=== PATIENT | male | born 1990 ===

== ENCOUNTER 2017-09-03 09:46 | Observation (INO) | payer OTHER ==
[2017-09-03 09:54] VITALS: BMI 35.4
[2017-09-03] MEDS ORDERED: Sodium Chloride 0.9% 1,000 ML IV STA (10:28)
--- NOTE | 2017-09-03 10:29 | ED PDOC ---
HPI: CCC, URI, Sore Throat Time Seen by Provider: 09/03/17 10:02 Chief Complaint (Nursing): ENT Problem Chief Complaint (Provider): Sore throat History Per: Patient History/Exam Limitations: no limitations Have you had recent travel within the past 21 days to any of the following countries: [place], [place], [place] or [place]?: No Onset/Duration Of Symptoms: Days (6) Current Symptoms Are (Timing): Still Present Location Of Pain: Throat Sick Contacts (Context): None Associated Symptoms: Fever (at night), Sore Throat. denies: Nausea, Vomiting Additional History Per: Patient Additional Complaint(s): 27yo male, no past medical history, presents to ED with complaints of a sore throat present for the past 6 days. Patient states he was seen at [facility] when his symptoms first started and was diagnosed with a strep throat and placed on a 10 day regimen of penicillin. Patient has been taking his antibiotics as prescribed as well as Motrin for pain with no relief of symptoms. He denies any fever, chills, vomiting or diarrhea. Patient states he has not been able to tolerate PO intake due to pain while swallowing. He has no other medical complaints. PMD: None provided Past Medical History Reviewed: Historical Data, Nursing Documentation, Vital Signs Vital Signs: Last Vital Signs Temp 97.7 F 09/03/17 09:52 Pulse 98 H 09/03/17 09:52 Resp 16 09/03/17 09:52 BP 119/78 09/03/17 09:52 Pulse Ox 98 09/03/17 14:32 - Medical History PMH: No Chronic Diseases - Surgical History Surgical History: No Surg Hx - Family History Family History: States: No Known Family Hx - Allergies Allergies/Adverse Reactions: Allergies Allergy/AdvReac Type Severity Reaction Status Date / Time No Known Allergies Allergy Verified 09/03/17 10:05 Review of Systems ROS Statement: Except As Marked, All Systems Reviewed And Found Negative Constitutional: Negative for: Fever, Chills ENT: Positive for: Throat Pain Gastrointestinal: Negative for: Nausea, Vomiting Physical Exam - Reviewed Nursing Documentation Reviewed: Yes Vital Signs Reviewed: Yes - Physical Exam Appears: Positive for: Non-toxic Head Exam: Positive for: ATRAUMATIC, NORMAL INSPECTION, NORMOCEPHALIC Skin: Positive for: Normal Color Eye Exam: Positive for: Normal appearance ENT: Positive for: Pharyngeal Erythema, Tonsillar Exudate, Tonsillar Swelling ( right > left) Neck: Positive for: Supple Cardiovascular/Chest: Positive for: Regular Rate, Rhythm Respiratory: Positive for: Normal Breath Sounds Gastrointestinal/Abdominal: Positive for: Normal Exam, Soft. Negative for: Tenderness Neurologic/Psych: Positive for: Alert, Oriented. Negative for: Motor/Sensory Deficits - Laboratory Results Result Diagrams: 09/03/17 11:05 09/03/17 11:05 - ECG O2 Sat by Pulse Oximetry: 98 (RA) Pulse Ox Interpretation: Normal Medical Decision Making Medical Decision Making: Impression: Tonsillitis Differential: Peritonsilar or tonsilar abscess Plan: -- Labs -- Rapid Strep -- [place] -- Clindaymcin 600mg in 50 ml IVPB -- Decadron 10 mg IV -- IV Fluids -- CT Neck soft tissue Time: 1344 CT Neck FINDINGS: NASOPHARYNX: Unremarkable. SUPRAHYOID NECK: Dental artifact limits evaluation. There appears to be moderately prominent lingual tonsillar hypertrophy and soft tissue bilaterally. There is a small amount of hypodensity seen in the right peritonsillar region. Small developing phlegmon or early abscess is not excluded. No appreciable focal low density is seen in the left peritonsillar region. Tongue base region shows no evidence of fluid collection. There is some additional inflammatory change extending into the inferior oral pharynx bilaterally. A portion may also extend into the aryepiglottic regions. INFRAHYOID NECK: No collections or masses are seen in the infrahyoid region. Visualized focal cords are unremarkable, although there does appear to be a small amount of soft tissue thickening in the right side of the glottis without focal low density to suggest abscess. Epiglottis is otherwise unremarkable without significant thickening. MASS: None. GLANDS: Parotid and submandibular glands unremarkable. Normal size thyroid gland, without nodule. LYMPH NODES: Multiple enlarged lymph nodes are identified bilaterally, greatest in the jugular -digastric region and level 2 region. These appear to be more than likely reactive in a patient of this age but will require further clinical follow-up. Smaller submental and submandibular lymph nodes are appreciated. No supraclavicular adenopathy is noted. CERVICAL SPINE: No fracture or focal lesion. VASCULAR STRUCTURES: Unremarkable. OTHER FINDINGS: Visualized brain is within normal limits without abnormal enhancement or appreciable epidural or subdural collection. Retro-orbital regions are unremarkable. Bony structures are intact. Visualized sinuses and mastoid air cells are clear. Lung apices show no evidence of infiltrate. Mediastinum is within normal limits without collection. IMPRESSION: Bilateral moderate tonsillar hypertrophy and soft tissue consistent with pharyngitis. There is a small area of hypodensity seen in the right peritonsillar region. This would appear to represent developing phlegmon and/ or early abscess. No appreciable drainable collections clearly identified although further clinical follow-up is suggested. In addition there are multiple bilateral enlarged neck lymph nodes. [place]: [address] Luevano who is agreeable with plan for decadron and clindamycin. He will come and evaluate patient in ED for examination and final disposition. Scribe Attestation: Documented by Bailey Mclain acting as a scribe for Jacinda Caro MD. Provider Attestation: All medical record entries made by the Scribe were at my direction and personally dictated by me. I have reviewed the chart and agree that the record accurately reflects my personal performance of the history, physical exam, medical decision making, and the department course for this patient. I have also personally directed, reviewed, and agree with the discharge instructions and disposition. Disposition - Patient ED Disposition Is Patient to be Admitted: Transfer of Care - Disposition Disposition Time: 15:00 Condition: STABLE Forms: [employer] (Arabic) Patient Signed Over To: Margret Rodriguez Handoff Comments: Pending exam from Dr. Luevano and final disposition.
[2017-09-03] MEDS ORDERED: Clindamycin 600mg/50ml NS 600 MG/50 ML BAG IVPB STA (10:31)
[2017-09-03] MEDS ORDERED: Dexamethasone 4 mg/1 ml ONE (10:41)
[2017-09-03] MEDS ORDERED: Clindamycin 600mg/50ml NS 600 MG/50 ML BAG IVPB ONE (11:11)
[2017-09-03 11:23] LABS: BASO % 0.4 % (0.0-2.0); EOS % 0.5 % (0.0-4.0); HEMOGLOBIN 16.1 g/dL (12.0-18.0); LYMPH # 0.9 K/uL (1.0-4.3); LYMPH % 29.6 % (20.0-40.0); MEAN CELL VOLUME 87.9 fl (80.0-94.0); MEAN CORPUSCULAR HEMOGLOBIN 29.7 pg (27.0-31.0); MEAN CORPUSCULAR HGB CONC 33.8 g/dL (33.0-37.0); MONO # 0.3 K/uL (0.0-0.8); MONO % 10.6 % (0.0-10.0); NEUT # 1.8 K/uL (1.8-7.0); NEUT % 58.9 % (50.0-75.0); NRBC % 0.3 % (0.0-0.0); RBC 5.43 Mil/uL (4.40-5.90)
[2017-09-03 12:02] LABS: BLOOD UREA NITROGEN 11 mg/dl (9-20); GFR AFRICAN-AMERICAN > 60; GFR NON-AFRICAN AMERICAN > 60
[2017-09-03] MEDS ORDERED: Iohexol 300 100 ML IJ ONE (12:25)
--- NOTE | 2017-09-03 13:33 | CT ---
PROCEDURE: CT NECK WITH CONTRAST HISTORY: Tonsillar abscess right COMPARISON: None TECHNIQUE: CT of the neck with intravenous contrast. Coronal and sagittal reformats generated. Intravenous contrast dose: Omnipaque Radiation dose: DLP 834 mGy-cm This CT exam was performed using one or more of the following dose reduction techniques: Automated exposure control, adjustment of the mA and/or kV according to patient size, and/or use of iterative reconstruction technique. FINDINGS: NASOPHARYNX: Unremarkable. SUPRAHYOID NECK: Dental artifact limits evaluation. There appears to be moderately prominent lingual tonsillar hypertrophy and soft tissue bilaterally. There is a small amount of hypodensity seen in the right peritonsillar region. Small developing phlegmon or early abscess is not excluded. No appreciable focal low density is seen in the left peritonsillar region. Tongue base region shows no evidence of fluid collection. There is some additional inflammatory change extending into the inferior oral pharynx bilaterally. A portion may also extend into the aryepiglottic regions. INFRAHYOID NECK: No collections or masses are seen in the infrahyoid region. Visualized focal cords are unremarkable, although there does appear to be a small amount of soft tissue thickening in the right side of the glottis without focal low density to suggest abscess. Epiglottis is otherwise unremarkable without significant thickening. MASS: None. GLANDS: Parotid and submandibular glands unremarkable. Normal size thyroid gland, without nodule. LYMPH NODES: Multiple enlarged lymph nodes are identified bilaterally, greatest in the jugular -digastric region and level 2 region. These appear to be more than likely reactive in a patient of this age but will require further clinical follow-up. Smaller submental and submandibular lymph nodes are appreciated. No supraclavicular adenopathy is noted. CERVICAL SPINE: No fracture or focal lesion. VASCULAR STRUCTURES: Unremarkable. OTHER FINDINGS: Visualized brain is within normal limits without abnormal enhancement or appreciable epidural or subdural collection. Retro-orbital regions are unremarkable. Bony structures are intact. Visualized sinuses and mastoid air cells are clear. Lung apices show no evidence of infiltrate. Mediastinum is within normal limits without collection. IMPRESSION: Bilateral moderate tonsillar hypertrophy and soft tissue consistent with pharyngitis. There is a small area of hypodensity seen in the right peritonsillar region. This would appear to represent developing phlegmon and/or early abscess. No appreciable drainable collections clearly identified although further clinical follow-up is suggested. In addition there are multiple bilateral enlarged neck lymph nodes.
--- NOTE | 2017-09-03 15:35 | ED PDOC ---
- Laboratory Results Result Diagrams: 09/04/17 05:30 09/04/17 05:30 - ECG O2 Sat by Pulse Oximetry: 98 (RA) Pulse Ox Interpretation: Normal Medical Decision Making Medical Decision Making: Receiving sign out: Patient signed out to me by Dr. Caro at [address] Luevano and final disposition. Time: 164 Dr. Luevano examined patient and states it is more likely asymmetrical tonsillitis and not a tonsilar abscess. 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 Decadron 10mg Q8 hours x 2 dose ordered. Final diagnosis: Leukopenia, asymmetrical tonsillitis, failed outpatient therapy Scribe Attestation: Documented by Bailey Mclain acting as a scribe for Margret Rodriguez MD. Provider Attestation: All medical record entries made by the Scribe were at my direction and personally dictated by me. I have reviewed the chart and agree that the record accurately reflects my personal performance of the history, physical exam, medical decision making, and the department course for this patient. I have also personally directed, reviewed, and agree with the discharge instructions and disposition. Disposition - Clinical Impression Clinical Impression: Acute tonsillitis - POA Present On Arrival: None - Disposition Disposition: Hospitalized as Observation Patient Disposition Time: 16:48 Condition: STABLE
--- NOTE | 2017-09-03 16:56 | CP.PCM.PN ---
Subjective - Date & Time of Evaluation Date of Evaluation: 09/03/17 Time of Evaluation: 16:49 - Subjective Subjective: see below Objective - Vital Signs/Intake and Output Vital Signs (last 24 hours): Temp Pulse Resp BP Pulse Ox 97.7 F 98 H 16 119/78 98 09/03/17 09:52 09/03/17 09:52 09/03/17 09:52 09/03/17 09:52 09/03/17 16:48 - Labs Labs: 09/03/17 11:05 09/03/17 11:05 Assessment and Plan - Assessment and Plan (Free Text) Assessment: ENT Consult Note Chief Complaint sore throat History of Present Illness 27 y/o male with one week of sore throat. He was given PCN x5d and feels same. He is unable to eat due to the pain. No voice changes. No prior problems with the throat. Past Medical Hx denies Allergies NKDA Social and Family Hx non-contributory Review of Systems see HPI Exam awake, alert, comfortable face symmtetic no facial tenderness OC/OP clear; no trismus; no soft palate swelling or asymmetry. R>L tonsil inflammation with redness and exudate (size 2-3+) Neck soft, no swelling or tenderness WBC 3.0 monospot -ve CT reviewed: no abscess or drainable collection; the hypodensity seen by the radiologist like represents heterogeneity of the tonsil Impression acute tonsillitis, peritonsillar cellulitis dehydration Recommend Admit for IV abx (Clinda already given, is a good choice given PCN failure) Decadron 10mg IV q8h x2 doses If patient improves after 24-48 hours of abx, then he can be discharged home on PO Clindamycin 300 TID for another 10d. importance of probiotics d/w patient I explained to the patient the low WBC (3.0) and the need for him to arrange o/ p medical f/u to re-check this when he is not sick. He understands.
[2017-09-03] MEDS ORDERED: Dexamethasone 10 MG in Sodium Chloride 0.9% 50 ML IV SCH (17:00)
--- NOTE | 2017-09-03 17:38 | CP.PCM.HP ---
History of Present Illness - History of Present Illness History of Present Illness: cc: throat not getting better HPI: 27 M no PMH presents for worsening moderate nonradiating throat pain. Patient took a course of PCN for 5 days, and states he did not improve. He reports difficulty eating, however no difficulty breathing, or vocal changes or stridor. Pt noted to have WBC 3.0, CT scan showed bilateral tonsillar hypertrophy and soft tissue consistent with pharyngitis. Nondrainable early abscess/phlegmon. Patient was seen by ENT in ED, recommend IV Decadron and Clindamycin. We will obs patient for IV abx and IV steroids 2 more doses. Per ENT, if patient feels improved in 24-48 hours, he may be discharged with PO Clinda 300 mg TID. ROS: per HPI all other systems reviewed and negative. PMSH: denies FH: DM SH: denies tobacco, ETOH, IVDU no meds NKDA Present on Admission - Present on Admission Any Indicators Present on Admission: No Past Patient History - Past Social History Smoking Status: Never Smoked - PSYCHIATRIC Hx Substance Use: No Meds Allergies/Adverse Reactions: Allergies Allergy/AdvReac Type Severity Reaction Status Date / Time No Known Allergies Allergy Verified 09/03/17 10:05 Physical Exam - Constitutional Additional comments: Vitals Reviewed GEN: WDWN, ALERT, COOPERATIVE HEENT: NCAT, PERRL, EOMI, +tonsillar swelling R>L +erythema, mild exudates HEART: RRR, +S1S2, NO MRG LUNG: CTAB, NO WRR ABD: SOFT, NT, ND, NO HSM, NO MASSES EXT: NORMAL PEDAL PULSES, GOOD CAPILLARY REFILL NEURO: AAOX3, STRENGTH EQUAL BILATERAL UPPER AND LOWER EXTREMITIES SKIN: WARM, DRY PSYCH: NORMAL MOOD, NORMAL AFFECT Results - Vital Signs Recent Vital Signs: Last Vital Signs Temp 97.7 F 09/03/17 09:52 Pulse 98 H 09/03/17 09:52 Resp 16 09/03/17 09:52 BP 119/78 09/03/17 09:52 Pulse Ox 98 09/03/17 16:50 - Labs Result Diagrams: 09/03/17 11:05 09/03/17 11:05 Labs: Laboratory Results - last 24 hr 09/03/17 09/03/17 09/03/17 11:05 11:05 11:05 WBC 3.0 L RBC 5.43 Hgb 16.1 Hct 47.7 MCV 87.9 MCH 29.7 MCHC 33.8 RDW 14.0 Plt Count 146 MPV 9.0 Neut % (Auto) 58.9 Lymph % (Auto) 29.6 Jack % (Auto) 10.6 H Eos % (Auto) 0.5 Baso % (Auto) 0.4 Neut # (Auto) 1.8 Lymph # (Auto) 0.9 L Jack # (Auto) 0.3 Eos # (Auto) 0.0 Baso # (Auto) 0.0 Sodium 144 Potassium 4.0 Chloride 101 Carbon Dioxide 26 Anion Gap 21 H BUN 11 Creatinine 0.8 Est GFR ( Amer) > 60 Est GFR (Non-Af Amer) > 60 Random Glucose 83 Calcium 9.0 Infectious Jack Assay Negative Grp A Beta Strep Ag 09/03/17 11:10 WBC RBC Hgb Hct MCV MCH MCHC RDW Plt Count MPV Neut % (Auto) Lymph % (Auto) Jack % (Auto) Eos % (Auto) Baso % (Auto) Neut # (Auto) Lymph # (Auto) Jack # (Auto) Eos # (Auto) Baso # (Auto) Sodium Potassium Chloride Carbon Dioxide Anion Gap BUN Creatinine Est GFR ( Amer) Est GFR (Non-Af Amer) Random Glucose Calcium Infectious Jack Assay Grp A Beta Strep Ag Negative Assessment & Plan - Assessment and Plan (Free Text) Plan: 27 M no PMH presents for worsening moderate nonradiating throat pain. Patient took a course of PCN for 5 days, and states he did not improve. He reports difficulty eating, however no difficulty breathing, or vocal changes or stridor. Pt noted to have WBC 3.0, CT scan showed bilateral tonsillar hypertrophy and soft tissue consistent with pharyngitis. Nondrainable early abscess/phlegmon. Patient was seen by ENT in ED, recommend IV Decadron and Clindamycin. We will obs patient for IV abx and IV steroids 2 more doses. Per ENT, if patient feels improved in 24-48 hours, he may be discharged with PO Clinda 300 mg TID. Acute Tonsillitis Peritonsillar Cellulitis - Clindamycin 300 mg IV Q8 - 2 more doses of Decadron - ENT consult Dr. Luevano - Per ENT, if patient feels improved in 24-48 hours, he may be discharged with PO Clinda 300 mg TID. Leukopenia - likely due to infection - repeat tomorrow VTE PPx patient ambulates
[2017-09-03] MEDS ORDERED: Clindamycin 300 MG in Sodium Chloride 0.9% 50 ML IVPB SCH (17:45)
[2017-09-04] MEDS ORDERED: Clindamycin in NS 300 MG/50 ML BAG IVPB SCH (01:00)
[2017-09-04 07:14] LABS: HEMOGLOBIN 15.4 g/dL (12.0-18.0); MEAN CELL VOLUME 87.9 fl (80.0-94.0); MEAN CORPUSCULAR HEMOGLOBIN 29.9 pg (27.0-31.0); RBC 5.17 Mil/uL (4.40-5.90); RED CELL DISTRIBUTION WIDTH 13.9 % (11.5-14.5); WHITE BLOOD COUNT 3.2 K/uL (4.8-10.8)
[2017-09-04 07:38] LABS: BLOOD UREA NITROGEN 14 mg/dl (9-20); GFR AFRICAN-AMERICAN > 60; GFR NON-AFRICAN AMERICAN > 60
[2017-09-04 07:51] VITALS: BP 110/70; PULSE 73; RESP 19; TEMP 97.6; O2SAT 98
--- NOTE | 2017-09-04 11:28 | CP.PCM.DIS ---
Provider - Provider Date of Admission: 09/03/17 16:48 Attending physician: Katie Dwyer DO Time Spent in preparation of Discharge (in minutes): 30 Diagnosis - Discharge Diagnosis (1) Acute tonsillitis Status: Acute Hospital Course - Lab Results Lab Results: Micro Results 09/03/17 11:10 Throat Group A Strep Throat Culture - Final NORMAL SAPROPHYTIC YOVANY. CULTURE NEGATIVE FOR BETA STREP GROUP A. 09/03/17 10:50 Blood-Venous Blood Culture - Preliminary NO GROWTH AFTER 24 HOURS 09/03/17 10:50 Blood-Venous Blood Culture - Preliminary NO GROWTH AFTER 24 HOURS Most Recent Lab Values WBC 3.2 K/uL (4.8-10.8) L 09/04/17 05:30 RBC 5.17 Mil/uL (4.40-5.90) 09/04/17 05:30 Hgb 15.4 g/dL (12.0-18.0) 09/04/17 05:30 Hct 45.4 % (35.0-51.0) 09/04/17 05:30 MCV 87.9 fl (80.0-94.0) 09/04/17 05:30 MCH 29.9 pg (27.0-31.0) 09/04/17 05:30 MCHC 34.0 g/dL (33.0-37.0) 09/04/17 05:30 RDW 13.9 % (11.5-14.5) 09/04/17 05:30 Plt Count 185 K/uL (130-400) 09/04/17 05:30 MPV 9.0 fl (7.2-11.7) 09/03/17 11:05 Neut % (Auto) 58.9 % (50.0-75.0) 09/03/17 11:05 Lymph % (Auto) 29.6 % (20.0-40.0) 09/03/17 11:05 [place] % (Auto) 10.6 % (0.0-10.0) H 09/03/17 11:05 Eos % (Auto) 0.5 % (0.0-4.0) 09/03/17 11:05 Baso % (Auto) 0.4 % (0.0-2.0) 09/03/17 11:05 Neut # (Auto) 1.8 K/uL (1.8-7.0) 09/03/17 11:05 Lymph # (Auto) 0.9 K/uL (1.0-4.3) L 09/03/17 11:05 [place] # (Auto) 0.3 K/uL (0.0-0.8) 09/03/17 11:05 Eos # (Auto) 0.0 K/uL (0.0-0.7) 09/03/17 11:05 Baso # (Auto) 0.0 K/uL (0.0-0.2) 09/03/17 11:05 Sodium 145 mmol/l (132-148) 09/04/17 05:30 Potassium 4.7 MMOL/L (3.6-5.0) 09/04/17 05:30 Chloride 100 mmol/L (98-107) 09/04/17 05:30 Carbon Dioxide 29 mmol/L (22-30) 09/04/17 05:30 Anion Gap 21 (10-20) H 09/04/17 05:30 BUN 14 mg/dl (9-20) 09/04/17 05:30 Creatinine 0.6 mg/dl (0.8-1.5) L 09/04/17 05:30 Est GFR ( Amer) > 60 09/04/17 05:30 Est GFR (Non-Af Amer) > 60 09/04/17 05:30 Random Glucose 115 mg/dL (75-110) H 09/04/17 05:30 Calcium 9.0 mg/dL (8.4-10.2) 09/04/17 05:30 Infectious [place] Assay Negative (NEGATIVE) 09/03/17 11:05 Grp A Beta Strep Ag Negative (NEGATIVE) 09/03/17 11:10 - Hospital Course Hospital Course: 27 M no PMH presents for worsening moderate nonradiating throat pain. Patient took a course of PCN for 5 days, and states he did not improve. He reports difficulty eating, however no difficulty breathing, or vocal changes or stridor. Pt noted to have WBC 3.0, CT scan showed bilateral tonsillar hypertrophy and soft tissue consistent with pharyngitis. Nondrainable early abscess/phlegmon. Patient was seen by ENT in ED, recommend IV Decadron and Clindamycin. Patient was observed and given IV abx and IV steroids 2 more doses with much improvement this morning. Per ENT, if patient feels improved in 24-48 hours, he may be discharged with PO Clinda 300 mg TID. Patient is improved, able to swallow without difficulty and is stable to be discharged home with oral antibiotics with follow-up with his PCP and ENT. Discharge Exam - Head Exam Additional comments: Physical exam: Constitutional- cooperative, awake, alert Head- NCAT, PERRL Eye- PERRL, EOMI ENT- normal exam, MMM. Neck- normal inspection, supple, no JVD Respiratory- CTAB, no wheezes rales rhonchi Cardiovascular- RRR, +S1, +S2 no MRG GI/Abdominal- normal bowel sounds, soft, no mass, no hsm Skin- warm, dry Extremities Exam- normal capillary refill, normal inspection Neurological Exam- alert, awake, oriented Psych- normal mood, normal affect Discharge Plan - Discharge Medications Prescriptions: Clindamycin [Cleocin] 300 mg PO Q8 #30 cap - Follow Up Plan Condition: STABLE Disposition: HOME/ ROUTINE
== END 2017-09-04 13:36 | disposition home or self-care (01) ==
LOC: H.ER 09:46 → H.ERHOLD 16:48 → H.MEDSURG1 17:47
PROVIDERS: ADMIT Student in an Organized Health Care Education/Training Program; ATTEND Student in an Organized Health Care Education/Training Program
DX: D72.819 Decreased white blood cell count, unspecified (principal); E86.0 Dehydration; J36 Peritonsillar abscess; R63.3 Feeding difficulties; R59.0 Localized enlarged lymph nodes
CPT/HCPCS: 36415; 70491; 80048; 85025; 85027; 86308; 87040; 87070; 87081; 87430; 96365; 96366; 96375; 99283; G0378; J1100; J7040; Q9967